=== PATIENT | female | born 1965 | race Caucasian/White ===

== ENCOUNTER 2018-05-12 05:43 | Day surgery (SDC) | payer OTHER ==
[~2018-05-12 05:43] MED LIST: CLONAZEPAM2 MG PO; OMEPRAZOLE20 MG PO; RESTORIL30 M1 PO; ZANTAC300 MG PO
== END 2018-05-12 13:45 | disposition home or self-care (01) ==
LOC: CIR.AMB 05:43 → ADM 12:45 → CIR.AMB 13:45
DX: L72.0 Epidermal cyst (principal)